=== PATIENT | male | born 1945 | race Caucasian/White ===

== ENCOUNTER 2022-02-01 05:21 | Day surgery (SDC) | payer OTHER, BC ==
[2022-01-27 10:47] VITALS: BMI 28.2
[2022-02-01 13:47] LABS: CSF APPEARANCE CLEAR (CLEAR); CSF COLOR COLORLESS (COLORLESS); CSF WBC 0 mm3 (0-5)
[2022-02-01 13:53] LABS: BF GLUCOSE (CSF ONLY) 66 mg/dL (40-70)
[2022-02-01 15:00] VITALS: RESP 20; TEMP 97.3
[2022-02-01 15:12] VITALS: BP 116/67; PULSE 71
[2022-02-03 18:08] LABS: ALPHA-2-GLOBULIN,CSF 6.1 % (3.0-12.6); BETA GLOBULIN,CSF 17.6 % (7.3-17.9); GAMMA GLOBULIN,CSF 10.6 % (3.0-13.0); M-SPIKE CSF Not Observed % (Not Observed); PRE-ALBUMIN CSF 3.8 % (2.2-7.1)
[2022-02-05 10:06] LABS: LYME PCR CSF Negative (Negative)
== END 2022-02-01 13:10 | disposition home or self-care (01) ==
LOC: JRADIR 05:21
PROVIDERS: ATTEND Internal Medicine
PROC: 009U3ZX Drainage of Spinal Canal, Percutaneous Approach, Diagnostic (ICD-10-PCS; principal; 2022-02-01)
DX: G62.9 Polyneuropathy, unspecified (principal); R53.1 Weakness
CPT/HCPCS: 36415; 62272; 82784; 82945; 84157; 84166; 86617; 87476